=== PATIENT | male | born 1960 | race Caucasian/White ===

== ENCOUNTER 2016-12-30 14:15 | Emergency (ER) | payer MEDICARE, OTHER ==
[~2016-12-30] VITALS: Ht 182.9 cm; Wt 77.3 kg
[~2016-12-30 14:15] MED LIST: DIVA125T PO; HYDR-3971 PO; QUET25TA PO; [UNRECOGNIZED DRUG - OTHER] PO
[2016-12-30] MEDS ORDERED: KETOROLAC TROMETHAMINE 60 MG/2 ML VIAL IM ONE (15:45)
[2016-12-30] MEDS ORDERED: PERTUSS(ACELL),DIPH,TET VAC/PF 0.5 ML VIAL IM ONE (15:45)
[2016-12-30] MEDS ORDERED: MUPIROCIN CALCIUM 2% 22 GM OINTMENT TP ONE (15:45)
[2016-12-30 17:52] VITALS: BP 110/74
== END 2016-12-30 18:29 | disposition home or self-care (01) ==
LOC: EMS 14:16
DX: S60.229A Contusion of unspecified hand, initial encounter (principal); S40.012A Contusion of left shoulder, initial encounter; M13.812 Other specified arthritis, left shoulder; F10.129 Alcohol abuse with intoxication, unspecified; F17.210 Nicotine dependence, cigarettes, uncomplicated; X58.XXXA Exposure to other specified factors, initial encounter; Y93.89 Activity, other specified; Y92.488 Other paved roadways as the place of occurrence of the external cause; Y99.8 Other external cause status
CPT/HCPCS: 73030; 73130; 90471; 90715; 96372; 99284; J1885

== ENCOUNTER 2016-12-31 12:27 | Emergency (ER) | payer MEDICARE ==
[~2016-12-31] VITALS: Ht 182.9 cm; Wt 77.0 kg
[2016-12-31 14:30] VITALS: BP 99/63
[2016-12-31] MEDS ORDERED: IBUPROFEN 800 MG TABLET PO ONE (15:30)
== END 2016-12-31 15:50 | disposition home or self-care (01) ==
LOC: EDUNIT# 12:27 → EMS 12:31
DX: S60.212A Contusion of left wrist, initial encounter (principal); F17.210 Nicotine dependence, cigarettes, uncomplicated; Y08.89XA Assault by other specified means, initial encounter; Y93.89 Activity, other specified; Y92.89 Other specified places as the place of occurrence of the external cause; Y99.8 Other external cause status
CPT/HCPCS: 99283

== ENCOUNTER 2017-01-01 03:22 | Emergency (ER) | payer MEDICARE ==
[~2017-01-01] VITALS: Ht 182.9 cm; Wt 77.0 kg
[2017-01-01] MEDS ORDERED: LORazepam 2 MG/ML VIAL IM ONE (04:15)
[2017-01-01] MEDS ORDERED: KETOROLAC TROMETHAMINE 30 MG/ML VIAL IM ONE (04:15)
[2017-01-01] MEDS ORDERED: CefTRIAXone SODIUM 1 GM/VIAL IM ONE (04:30)
[2017-01-01] MEDS ORDERED: LIDOCAINE HCL/PF 1% 2 ML VIAL IM ONE (04:30)
[2017-01-01 05:38] VITALS: BP 96/62
== END 2017-01-01 05:40 | disposition home or self-care (01) ==
LOC: EMS 03:24
DX: L03.114 Cellulitis of left upper limb (principal); F17.210 Nicotine dependence, cigarettes, uncomplicated
CPT/HCPCS: 96372; 99284; J0696; J1885; J2060; J3490

== ENCOUNTER 2017-04-08 11:55 | Emergency (ER) | payer MEDICARE ==
[~2017-04-08] VITALS: Ht 180.3 cm; Wt 77.3 kg
[2017-04-08 12:00] VITALS: BP 107/68
[2017-04-08] MEDS ORDERED: LEVE250T55 PO (12:02)
== END 2017-04-08 13:12 | disposition left against medical advice (07) ==
LOC: EMS 11:56
DX: R56.9 Unspecified convulsions (principal); M25.551 Pain in right hip; F17.210 Nicotine dependence, cigarettes, uncomplicated; Z53.21 Procedure and treatment not carried out due to patient leaving prior to being seen by health care provider